=== PATIENT | female | born 1930 | race Caucasian/White ===

== ENCOUNTER 2020-05-12 09:37 | Inpatient (IN) | payer MEDICARE, OTHER ==
[~2020-05-12] VITALS: Ht 157.5 cm; Wt 52.6 kg
[2020-05-13 16:45] LABS: HEMOGLOBIN 9.5 gm/dl (12.3-15.3); RED BLOOD COUNT 3.21 M/UL (4.00-5.10); WHITE BLOOD COUNT 13.4 K/UL (4.5-11.0)
[2020-05-13 17:38] LABS: BUN/CREATININE RATIO 32 (0-10)
[2020-05-14 07:51] LABS: HEMOGLOBIN 8.4 gm/dl (12.3-15.3); RED BLOOD COUNT 2.91 M/UL (4.00-5.10); WHITE BLOOD COUNT 13.1 K/UL (4.5-11.0)
[2020-05-14] MEDS ORDERED: TYLOPHEN500 MG PO (09:47)
[2020-05-14] MEDS ORDERED: ASPIRIN CHEWABL81 MG PO (09:49)
[2020-05-14] MEDS ORDERED: PROVENTIL HFA6.7 GM INH (09:51)
[2020-05-14] MEDS ORDERED: TESSALON PERLE100 MG PO (09:52)
[2020-05-14] MEDS ORDERED: OMNICEF 300 MG300 MG PO (09:55)
[2020-05-14] MEDS ORDERED: CATAPRES 0.1MG0.1 MG PO (09:56)
[2020-05-14] MEDS ORDERED: LOVENOX60 MG/0.6 SC (09:56)
[2020-05-14] MEDS ORDERED: NEURONTIN 100100 MG PO (09:57)
[2020-05-14] MEDS ORDERED: ACIDOPHILUS PR1 EAC2 PO (09:58)
[2020-05-14] MEDS ORDERED: LEVOTHYROXINE100 MC2 PO (09:59)
[2020-05-14] MEDS ORDERED: MAGNESIUM IV (10:00)
[2020-05-14] MEDS ORDERED: FLAGYL500 MG PO (10:02)
[2020-05-14] MEDS ORDERED: REMERON 15 MG T15 MG PO (10:03)
[2020-05-14] MEDS ORDERED: DAILY MULTIPLE1 EAC1 PO (10:04)
[2020-05-14] MEDS ORDERED: MYCOSTATIN100000 UTS PO (10:06)
[2020-05-14] MEDS ORDERED: ZOFRAN ODT 4 MG4 MG PO (10:07)
[2020-05-14] MEDS ORDERED: PROTONIX 40 MG40 M1 PO (10:08)
[2020-05-14] MEDS ORDERED: OYSTER SHELL PO (10:11)
[2020-05-14] MEDS ORDERED: [UNRECOGNIZED DRUG - OTHER] TOP (10:14)
[2020-05-14] MEDS ORDERED: NITROGLYCE20 MG/1 GM TOP (10:15)
[2020-05-15 03:45] LABS: HEMOGLOBIN 7.9 gm/dl (12.3-15.3); RED BLOOD COUNT 2.67 M/UL (4.00-5.10); WHITE BLOOD COUNT 12.4 K/UL (4.5-11.0)
[2020-05-15 04:09] LABS: BUN/CREATININE RATIO 33 (0-10)
[2020-05-16 06:34] LABS: HEMOGLOBIN 7.5 gm/dl (12.3-15.3); RED BLOOD COUNT 2.56 M/UL (4.00-5.10)
[2020-05-16 06:35] LABS: WHITE BLOOD COUNT 19.6 K/UL (4.5-11.0)
[2020-05-16 06:56] LABS: BUN/CREATININE RATIO 30 (0-10)
[2020-05-16] MEDS ORDERED: CATAPRES-TTS 11 EACH TP (09:30)
--- NOTE | 2020-05-16 13:19 | NUR ---
PATIENT'S DOBHOFF REMOVED PER DR. SEO INSTRUCTION. PATIENT TOLERATED WELL.
== END 2020-05-16 14:40 | DRG 56 ==
LOC: M/S 05-13 12:05
PROVIDERS: Physician Assistant; ADMIT Family Medicine
DX: G30.9 Alzheimer's disease, unspecified (principal); J18.9 Pneumonia, unspecified organism; I21.4 Non-ST elevation (NSTEMI) myocardial infarction; Z86.16 Personal history of COVID-19; G93.89 Other specified disorders of brain; I34.0 Nonrheumatic mitral (valve) insufficiency; I48.91 Unspecified atrial fibrillation; G25.81 Restless legs syndrome; L89.152 Pressure ulcer of sacral region, stage 2; I10 Essential (primary) hypertension; I50.9 Heart failure, unspecified; R62.7 Adult failure to thrive; K21.9 Gastro-esophageal reflux disease without esophagitis; E03.9 Hypothyroidism, unspecified; M35.00 Sjogren syndrome, unspecified; F02.80 Dementia in other diseases classified elsewhere, unspecified severity, without behavioral disturbance, psychotic disturbance, mood disturbance, and anxiety; Z66 Do not resuscitate; Z88.5 Allergy status to narcotic agent; Z88.8 Allergy status to other drugs, medicaments and biological substances; Z98.890 Other specified postprocedural states; Z68.21 Body mass index [BMI] 21.0-21.9, adult
CPT/HCPCS: 36415; 71045; 74018; 80048; 80053; 82550; 82553; 83605; 84439; 84443; 84484; 85025; 86140; 92526; 92610; 93005; 94640; 94664; 94760; J1650